=== PATIENT | female | born 1950 | race Caucasian/White ===

== ENCOUNTER 2017-06-01 17:47 | Emergency (ER) | payer BC ==
[2017-06-01 17:53] VITALS: BMI 29.2
[2017-06-01 18:47] LABS: BASOPHILS # (AUTO) 0.1 X10^3/uL (0.0-0.1); BASOPHILS % (AUTO) 0.6 % (0.2-1.0); EOSINOPHILS # (AUTO) 0.2 x10^3/uL (0.0-0.2); EOSINOPHILS % (AUTO) 1.2 % (0.9-2.9); HEMATOCRIT 41.4 % (36.0-47.0); LYMPHOCYTES # (AUTO) 2.8 X10^3/uL (1.3-2.9); LYMPHOCYTES % (AUTO) 20.6 % (21.0-51.0); MEAN CORPUSCULAR HEMOGLOBIN 30.5 pg (27.0-34.0); MEAN CORPUSCULAR HGB CONC 33.9 g/dL (33.0-35.0); MEAN PLATELET VOLUME 7.7 fL (7.4-11.0); MONOCYTES # (AUTO) 1.3 x10^3/uL (0.3-0.8); MONOCYTES % (AUTO) 9.3 % (0.0-13.0); NEUTROPHILS # (AUTO) 9.3 x10^3/uL (2.2-4.8); NEUTROPHILS % (AUTO) 68.3 % (42.0-75.0); PLATELET COUNT 272 X10^3/uL (150.0-450.0); WHITE BLOOD COUNT 13.5 X10^3/uL (3.6-10.0)
[2017-06-01 19:00] LABS: SERUM ACETONE NEGATIVE (NEGATIVE)
[2017-06-01 19:07] LABS: BLOOD UREA NITROGEN 20 mg/dL (7-18); CALCIUM 8.6 mg/dL (8.5-10.1); CARBON DIOXIDE 28.2 mmol/L (21-32); CHLORIDE 105 mmol/L (98-107); CREATININE 0.67 mg/dL (0.55-1.02); SODIUM 142 mmol/L (136-145); TROPONIN I < 0.02 ng/mL (0-1.5); eGFR BLACK RACES > 60 (>60); eGFR NON BLACK RACES > 60 (>60)
[2017-06-01] MEDS ORDERED: TORADOL 60 MG VIAL IM ONE (19:09)
[2017-06-01] MEDS ORDERED: PEPCID TAB 20 MG PO ONE (19:10)
--- NOTE | 2017-06-01 19:10 | DR.GENAD ---
HPI - PCP Primary Care Physician: NASRIN - HPI Comment HPI Comment: RECENTLY STOP DIABETIC MED. GLUCOSE NOT HIGH. - Complaint/Symptoms Chief Complaint Doctors Comments: CHEST PAIN BELOW LT BREAST, BACK PAIN AND GENERALIZE MUSCULAR PAIN THAT IS WORSE TONIGHT. NO URI SYMTOMS. NO FEVER. NO DYSURIA. 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 THE ER DOCTOR IN [place] TOLD HER TO STOP TAKING METFORMIN DUE TO HER ULCERS. HER FAMILY DOCTOR SAID TO COME HERE. Self Treatment fo Chief Complaint: NONE - Nurses notes reviewed Nurses Notes Review: Yes - Source History Provided: Patient - Mode of Arrival Mode of Arrival: Ambulatory - Timing Onset of Chief Complaint: 05/18/17 Came on: Suddenly - Duration Duration: Constant Duration: Days - Severity Severity: Moderate PMH - PMH Past Medical History: Yes Past Medical History: Anxiety, Depression, Diabetes, Hypertension Past Surgical History: Yes Surgical History: Cholecystectomy, Hysterectomy, Ortho Surgery - Family History History of Family Medical Conditions: Yes Family Medical History: Hypertension - Social History Does patient currently use any type of tobacco product: No Have you used tobacco products in the last 12 months: No Type of Tobacco Use: None Does any household member use tobacco: No Do you use any recreational Drugs:: No Lives With: Family Lives Where: Home - infectious screening In the last 2 months have you had wt loss of >10#?: NO Have you had fever, night sweats or hemotysis?: No Have you traveled outside the country in the last 6 months?: No Isolation: Standard ROS - Review of Systems Constitutional: Weakness, Fatigue. negative: Chills, Fever Eyes: negative: Eye Pain, Discharge ENTM: negative: Ear Pain, Nose Discharge, Nose Congestion, Throat Pain Respiratoy: No Symptoms Reported Cardiovascular: Chest Pain Gastrointestinal/Abdominal: No Symptoms Reported Genitourinary: No Symptoms Reported Neurological: Paresthesia Musculoskeletal: Back Pain Integumentary: No Symptoms Reported Hematologic/Lymphatic: No Symptoms Reported Endocrine: No Symptoms Reported All Other Systems: Reviewed and Negative PE - Vital Signs Vitals: Temperature 98.6 F Pulse Rate [Left] 83 Pulse Rate 79 Respiratory Rate 16 Blood Pressure [Right Arm] 128/73 Blood Pressure 142/68 O2 Sat by Pulse Oximetry 99 - General Limitations: No Limitations General Appearance: Alert - Head Head Exam: Normal Inspection - Eyes Eye exam: Normal Appearance - ENT ENT Exam: Normal External Ear Exam External Ear Exam: Normal External Inspection TM/Canal Exam: Bilateral Normal Nose Exam: Normal Nose Exam Mouth Exam: Normal Inspection Throat Exam: Normal Inspection - Neck Neck Exam: Trachea Midline - Chest Chest Inspection: Symmetric Chest Wall Rise - Respiratory Respiratory Exam: Normal Lung Sounds Bilat, Chest Wall Tenderness Respiratory Exam: Bilateral Rhonchi, Lower Rhonchi - Abdominal Exam Abdominal Exam: Normal Bowel Sounds, Soft. negative: Tenderness - Extremities Extremities Exam: Normal Inspection - Back Back Exam: Normal Inspection, Paraspinal Tenderness - Neurologic Neurological Exam: Alert, Oriented X3 - Psychiatric Psychiatric Exam: Normal Affect, Normal Mood - Skin Skin Exam: Normal Color MDM - Additional Information Additional Information Obtained From: Family - Differential Diagnosis Differential Diagnosis: CHEST PAIN, CHEST WALL PAIN, NEUROPATHY, MUSCULOSKELETAL PAIN. Course - Treatment Treatment: SEE ORDERS - Education/Counseling Education/Counseling: Patient, Family, Education Educated On: Diagnosis, Needs for Follow Up ROR - Labs Reviewed Laboratory Results Reviewed?: Yes Result Diagrams: 06/01/17 18:38 06/01/17 18:38 Laboratory: WBC 13.5 X10^3/uL (3.6-10.0) H 06/01/17 18:38 RBC 4.60 X10^6/uL (3.5-5.4) 06/01/17 18:38 Hgb 14.0 g/dL (12.0-16.0) 06/01/17 18:38 Hct 41.4 % (36.0-47.0) 06/01/17 18:38 MCV 90.0 fL (80.0-100.0) 06/01/17 18:38 MCH 30.5 pg (27.0-34.0) 06/01/17 18:38 MCHC 33.9 g/dL (33.0-35.0) 06/01/17 18:38 RDW 14.0 % (11.6-16.5) 06/01/17 18:38 Plt Count 272 X10^3/uL (150.0-450.0) 06/01/17 18:38 MPV 7.7 fL (7.4-11.0) 06/01/17 18:38 Neut % 68.3 % (42.0-75.0) 06/01/17 18:38 Lymph % 20.6 % (21.0-51.0) L 06/01/17 18:38 [place] % 9.3 % (0.0-13.0) 06/01/17 18:38 Eos % 1.2 % (0.9-2.9) 06/01/17 18:38 Baso % 0.6 % (0.2-1.0) 06/01/17 18:38 Neut # 9.3 x10^3/uL (2.2-4.8) H 06/01/17 18:38 Lymph # 2.8 X10^3/uL (1.3-2.9) 06/01/17 18:38 [place] # 1.3 x10^3/uL (0.3-0.8) H 06/01/17 18:38 Eos # 0.2 x10^3/uL (0.0-0.2) 06/01/17 18:38 Baso # 0.1 X10^3/uL (0.0-0.1) 06/01/17 18:38 Absolute Nucleated RBC 0.0 /100WBC 06/01/17 18:38 Sodium 142 mmol/L (136-145) 06/01/17 18:38 Corrected Sodium TNP 06/01/17 18:38 Potassium 4.1 mmol/L (3.5-5.1) 06/01/17 18:38 Chloride 105 mmol/L (98-107) 06/01/17 18:38 Carbon Dioxide 28.2 mmol/L (21-32) 06/01/17 18:38 BUN 20 mg/dL (7-18) H 06/01/17 18:38 Creatinine 0.67 mg/dL (0.55-1.02) 06/01/17 18:38 Est GFR (MDRD) Af Amer > 60 (>60) 06/01/17 18:38 Est GFR (MDRD) Non-Af > 60 (>60) 06/01/17 18:38 Glucose 105 mg/dL (65-99) H 06/01/17 18:38 Calcium 8.6 mg/dL (8.5-10.1) 06/01/17 18:38 Corrected Calcium 9.2 mg/dL (8.5-10.1) 06/01/17 18:38 Total Bilirubin 0.50 mg/dL (0.2-1.0) 06/01/17 18:38 AST 16 Units/L (15-37) 06/01/17 18:38 ALT 34 Units/L (12-78) 06/01/17 18:38 Alkaline Phosphatase 140 Units/L (46-116) H 06/01/17 18:38 Creatine Kinase 62 Units/L (26-192) 06/01/17 18:38 CK-MB (CK-2) < 1.0 ng/mL (0-4.0) 06/01/17 18:38 CK/CKMB % Calc 1.6 % (<4) 06/01/17 18:38 Troponin I < 0.02 ng/mL (0-1.5) 06/01/17 18:38 Total Protein 7.4 g/dL (6.4-8.2) 06/01/17 18:38 Albumin 3.3 g/dL (3.4-5.0) L 06/01/17 18:38 Globulin 4.1 g/dL (2.5-4.5) 06/01/17 18:38 Albumin/Globulin Ratio 0.8 Ratio (1.1-2.1) L 06/01/17 18:38 Specimen Type Clean catch urine 06/01/17 18:49 Urine Color Yellow (YELLOW) 06/01/17 18:49 Urine Appearance Clear (CLEAR) 06/01/17 18:49 Urine pH 7.0 (5.0 - 8.0) 06/01/17 18:49 Ur Specific [place] 1.010 (1.000-1.030) 06/01/17 18:49 Urine Protein Negative (NEGATIVE) 06/01/17 18:49 Urine Glucose (UA) Negative (NEGATIVE) 06/01/17 18:49 Urine Ketones Negative (NEGATIVE) 06/01/17 18:49 Urine Occult Blood Negative (NEGATIVE) 06/01/17 18:49 Urine Nitrite Negative (NEGATIVE) 06/01/17 18:49 Urine Bilirubin Negative (NEGATIVE) 06/01/17 18:49 Urine Urobilinogen Normal (NORMAL) 06/01/17 18:49 Ur Leukocyte Esterase Negative (NEGATIVE) 06/01/17 18:49 Urine RBC Negative /HPF (NEGATIVE) 06/01/17 18:49 Urine WBC 0 - 2 /HPF (NEGATIVE) 06/01/17 18:49 Ur Squamous Epith Cells Many /HPF (NEGATIVE) 06/01/17 18:49 Urine Bacteria Negative /HPF (NEGATIVE) 06/01/17 18:49 Ur Culture Indicated? No/not indicated 06/01/17 18:49 Acetone, Semi-Quant Negative (NEGATIVE) 06/01/17 18:38 - XRAY XRAY Interpreted by: Radiologist XRAY Findings: REPORT DISCUSS WITH PATIENT AND HER . - Diagnosis Discharge Problem: Neuropathy, Musculoskeletal pain Chest pain Qualifiers: Chest pain type: intercostal pain Qualified Code(s): R07.82 - Intercostal pain - Discharge Plan Disposition: 01 HOME, SELF-CARE Condition: Stable - Follow ups/Referrals Follow ups/Referrals: NFD,None [Primary Care Provider] - 3 days - Instructions Instructions: Neuropathic Pain, Musculoskeletal Pain, Chest Pain Observation Additional Instructions: RETURN TO ED IF WORSE.
[2017-06-01 19:11] LABS: ALANINE AMINOTRANSFERASE 34 Units/L (12-78); ALBUMIN 3.3 g/dL (3.4-5.0); ALKALINE PHOSPHATASE 140 Units/L (46-116); ASPARTATE AMINO TRANSFERASE 16 Units/L (15-37); CKMB % 1.6 % (<4); COR CA(FOR HYPOALB) 9.2 mg/dL (8.5-10.1); CREATINE KINASE 62 Units/L (26-192); CREATINE KINASE MB < 1.0 ng/mL (0-4.0); TOTAL PROTEIN 7.4 g/dL (6.4-8.2)
[2017-06-01 19:18] LABS: BILIRUBIN,URINE NEGATIVE (NEGATIVE); BLOOD/HEMOGLOBIN,URINE NEGATIVE (NEGATIVE); GLUCOSE, URINE NEGATIVE (NEGATIVE); KETONES,URINE NEGATIVE (NEGATIVE); LEUKOCYTE ESTERASE ,URINE NEGATIVE (NEGATIVE); NITRITES,URINE NEGATIVE (NEGATIVE); PROTEIN,URINE NEGATIVE (NEGATIVE); UROBILINOGEN,URINE NORMAL (NORMAL)
[2017-06-01] MEDS ORDERED: PEPCID TAB 20 MG ONE (19:20)
[2017-06-01] MEDS ORDERED: TORADOL 60 MG VIAL ONE (19:20)
[2017-06-01 19:24] LABS: APPEARANCE,URINE CLEAR (CLEAR); COLOR,URINE YELLOW (YELLOW)
[2017-06-01 19:25] LABS: RBC,URINE NEGATIVE /HPF (NEGATIVE)
[2017-06-01 19:26] LABS: BACTERIA,URINE NEGATIVE /HPF (NEGATIVE); SQUAMOUS EPITHELIAL CELL,UR MANY /HPF (NEGATIVE)
[2017-06-01] MEDS ORDERED: XANAX PO ONE (21:02)
[2017-06-01] MEDS ORDERED: XANAX ONE (21:04)
[2017-06-01 21:09] VITALS: BP 128/73
== END 2017-06-01 21:08 | disposition home or self-care (01) ==
LOC: ER 18:00
DX: G62.9 Polyneuropathy, unspecified (principal); M79.1 Myalgia; R07.82 Intercostal pain
CPT/HCPCS: 36415; 80053; 81001; 82009; 82550; 82553; 84484; 85025; 93005; 93010; 96372; 99283; 99285; J1885